=== PATIENT | female | born 1965 | race Caucasian/White ===

== ENCOUNTER 2024-06-03 16:13 | Emergency (ER) | payer MEDICAID ==
[~2024-06-03] VITALS: Ht 170.2 cm; Wt 82.9 kg
[~2024-06-03 16:13] MED LIST: BACL20TA PO; BUPR1FIL3 SL; CLON-527 PO; VILA10TA PO
[2024-06-03 16:57] LABS: BASOPHILS # (AUTO) 0.1 X10'3 (0-0.2); BASOPHILS % (AUTO) 0.6 % (0-1); EOSINOPHILS # (AUTO) 0.1 X10'3 (0-0.9); EOSINOPHILS % (AUTO) 1.2 % (0-6); HEMATOCRIT 43.3 % (35.0-45.0); HEMOGLOBIN 14.7 g/dl (12.0-16.0); LYMPHOCYTES # (AUTO) 2.7 X10'3 (1.1-4.8); LYMPHOCYTES % (AUTO) 22.5 % (21-51); MEAN CORPUSCULAR HEMOGLOBIN 33.2 PG (27.0-31.0); MEAN CORPUSCULAR HGB CONC 33.9 g/dL (33.0-36.5); MEAN CORPUSCULAR VOLUME 98.1 FL (78-98); MEAN PLATELET VOLUME 7.7 FL (7.4-10.4); MONOCYTES # (AUTO) 0.9 X10'3 (0-0.9); MONOCYTES % (AUTO) 7.8 % (2-12); NEUTROPHILS # (AUTO) 8.2 X10'3 (1.8-7.7); NEUTROPHILS % (AUTO) 67.9 % (42-75); PLATELET COUNT 484 X10'3 (140-440); RED BLOOD COUNT 4.41 X10'6 (4.20-5.60); RED CELL DISTRIBUTION WIDTH 13.1 % (11.5-14.5); WHITE BLOOD COUNT 12.1 X10'3 (4.5-11.0)
[2024-06-03 17:11] LABS: ALANINE AMINOTRANSFERASE 42 U/L (12-78); ALBUMIN 3.5 G/DL (3.4-5.0); ALBUMIN/GLOBULIN RATIO 0.9 (1.1-1.5); ALKALINE PHOSPHATASE 215 IU/L (46-116); ANION GAP 16 (8-16); ASPARTATE AMINO TRANSFERASE 19 U/L (10-37); BILIRUBIN,TOTAL 0.5 MG/DL (0.1-1.0); BLOOD UREA NITROGEN 10 MG/DL (7-18); BUN/CREATININE RATIO 11.4 (10.0-20.0); CALCIUM 8.9 MG/DL (8.5-10.1); CHLORIDE 106 MMOL/L (99-107); CREATININE 0.88 MG/DL (0.40-0.90); GLUCOSE 142 MG/DL (70-104); LIPASE 27 U/L (16-77); POTASSIUM 3.7 MMOL/L (3.5-5.1); SODIUM 143 MMOL/L (135-145); TOTAL CARBON DIOXIDE 21.2 MMOL/L (24-32); TOTAL PROTEIN 7.3 G/DL (6.4-8.2); eCRCL 65 ML/MIN; eGFR 65 ML/MIN
[2024-06-03 19:31] LABS: BILIRUBIN,URINE MODERATE (Neg); CLARITY,URINE CLEAR (Clear); COLOR,URINE YELLOW (Yellow); GLUCOSE, URINE NEGATIVE (Neg); KETONES,URINE TRACE mg/dl (Neg); LEUKOCYTE ESTERASE ,URINE NEGATIVE (Neg); OCCULT BLOOD,URINE NEGATIVE (Neg); PH,URINE 6.5 (4.8-8.0); PROTEIN,URINE 30 mg/dl (Neg); UROBILINOGEN,URINE 0.2 E.U/dL (0.2-1.0)
[2024-06-03 19:32] LABS: URINE HCG NEGATIVE (NEG)
[2024-06-03 19:39] LABS: NITRITES, URINE NEGATIVE (Neg); UA COLLECTION TYPE CLN CATCH MIDSTREAM
[2024-06-03 19:40] LABS: BACTERIA,URINE FEW /HPF (Neg); RBC,URINE 0-2 /HPF (0-2); SQUAMOUS EPITHELIAL CELL,UR MODERATE /LPF (FEW); WBC,URINE 0-4 /HPF (0-4)
[2024-06-03 23:35] VITALS: BP 120/86; PULSE 90; RESP 16; TEMP 98.6; O2SAT 98
== END 2024-06-03 23:37 | disposition home or self-care (01) ==
LOC: ER 16:14
DX: I72.8 Aneurysm of other specified arteries (principal); K59.00 Constipation, unspecified; F12.90 Cannabis use, unspecified, uncomplicated
CPT/HCPCS: 36415; 74176; 80053; 81001; 81025; 83690; 85025; 99284

== ENCOUNTER 2024-08-21 10:54 | Inpatient (IN) | payer MEDICAID ==
[~2024-08-21] VITALS: Ht 170.2 cm; Wt 80.9 kg
--- NOTE | 2024-08-21 11:25 | Physician Documentation ---
History of Present Illness ~ Chief Complaint: Confused Stated Complaint: HALLUCINATIONS Time Seen by MD: 11:07 Primary Medical Doctor: krishna LOPEZ History, review of systems, and physical examination are limited due to patient's acute clinical condition. This is a 59-year-old female with a last known well sometime yesterday, began acting strangely according to family. Family went to transport and get her evaluated for altered mental status. Similar to prior UTIs. EMS noted a strong odor of urine. At the time of my examination patient reports low back pain that been there couple of minutes and states that there is no palliating or aggravating factors for low back pain. Patient is very clearly altered and keeps talking about a box X and O box on a table, somebody needs to clean it up, go!" Denies chest pain or difficulty breathing. Denies any headache. Date: Aug 21, 2024 Time: 11:41 Patient informed the nurse that she "took a whole bunch of [place], Adderall, Soma Medication Reconciliation Allergies: Coded Allergies: No Known Allergies (Unverified , 09/30/12) Scheduled Baclofen (Baclofen), 1 TABLET PO BID, (Reported) Buprenorphine Hcl/Naloxone Hcl (Suboxone 8 Mg-2 Mg Sl Film), 1 EACH SL BID, (Reported) Vilazodone Hydrochloride (Viibryd), 20 MG PO DAILY, (Reported) Scheduled PRN Clonazepam* (Klonopin*), 0.5 MG PO DAILY PRN for anxiety, (Reported) Past Medical History Past Medical History: Chronic Back Pain Past Surgical History: noncontributory Alcohol Use: None Drug Use: marijuana Lives In: Home Review of Systems ROS Review of systems is limited as above Physical Exam Vital Signs: Temperature: 99.0, Source: Oral, Heart Rate: 92, Respiratory Rate: 22, BP: 157/89, Pulse Oximetry: 96, Weight: 77.270 Oxygen Flow Rate: 0 Physical Exam GENERAL: Awake, alert, oriented her name only, GCS 14v4, no apparent distress, non-toxic appearing, answers questions in the bizarre fashion, does not follows commands appropriately. Examined in room 11. HEENT: Atraumatic, normocephalic, pupils equal, extraocular muscles intact, sclerae anicteric, mucus membranes dry, oropharynx is clear, no stridor. NECK: supple, full active range of motion, trachea midline, no thyromegaly, no lymphadenopathy, no JVD. CARDIOVASCULAR: Mildly tachycardic and regular rate/rhythm, no murmurs/gallops/rubs, Pulses are 2+ in all extremities and symmetric. Capillary refill less than 2 seconds. PULMONARY: Nonlabored, good air movement ,no respiratory distress, speaking in full sentences, clear to auscultation bilaterally, no wheezing, no ronchi, no rales, no accessory muscle use. GASTROINTESTINAL: Soft, non-tender, non-distended, normal active bowel sounds, no organomegaly, no pulsatile masses, no CVA tenderness. NEUROLOGIC: Lucid with very clearly altered mental status. Normal facial symmetry. Moves all extremities symmetrically and with purpose. No truncal ataxia. Speech is fluid without evidence of dysarthria or aphasia, no focal deficits appreciated. MUSCULOSKELETAL: There is full range of motion of all extremities. There is no joint pain or joint swelling or joint erythema. There is no muscle pain or tenderness or swelling. EXTREMITIES: warm, well-perfused, no cyanosis, no clubbing, no edema, no acute deformities. Skin: warm, dry, no rashes or lesions, no jaundice, no petechiae orpurpura. No ecchymosis. PSYCHIATRIC: Unable to assess Progress Results/Orders Results/Orders Orders - FERCHO SALES DO Culture Blood (08/21/24 11:14) Chest,Single View (08/21/24 11:14) Ct Head (08/21/24 13:01) Straight Cath For Urine Sample (08/21/24 11:14) Non-Behavioral Restraints (08/21/24 14:16) Completed Orders - FERCHO SALES DO Electrocardiogram (08/21/24 11:14) Cbc/Diff (08/21/24 11:14) ESR (08/21/24 11:14) C-Reactive Protein (08/21/24 11:14) Urinalysis, Cult If Indicated (08/21/24 11:14) Chest,Single View (08/21/24 11:14) MG (08/21/24 11:14) Normal Saline 1000ml (0.9% Sodium Chlori (08/21/24 11:15) Ct Head (08/21/24 13:01) CMP (08/21/24 11:14) Hs Troponin I W Calculations (08/21/24 11:14) Hs Troponin I W Calculations (08/21/24 13:14) Lacticsepsis (08/21/24 11:14) Drug Screen, Urine (08/21/24 12:08) Ethanol (08/21/24 11:20) Lactic,2hr (08/21/24 13:05) Potassium Cl 20meq/15ml Oral (Potassium (08/21/24 13:10) Potassium Cl 20meq/15ml Oral (Potassium (08/21/24 13:10) Medications Received in ER Medications (Trade) Dose Ordered Sig/Frank Route PRN Reason Start Time Stop Time Status Last Admin Dose Admin (0.9% sodium chloride (NS) 1000ml IV soln) 1,000 ml ONCE ONCE IVB 08/21/24 11:15 08/21/24 11:16 DC 08/21/24 12:01 1,000 ML (POTASSIUM Cl 20mEq/15mL oral solution) 60 meq ONCE ONCE PO 08/21/24 13:10 08/21/24 13:11 DC 08/21/24 13:15 60 MEQ Vital Signs 08/21/24 08/21/24 08/21/24 11:03 11:38 13:18 Temp 99.0 Pulse 92 90 79 Resp 22 16 20 B/P (MAP) 157/89 168/103 (124) 148/79 (102) Pulse Ox 96 96 98 O2 Flow Rate 0 0 0 Laboratory Tests Test 08/21/24 11:20 08/21/24 11:29 08/21/24 11:50 08/21/24 13:18 White Blood Count 15.4 H Red Blood Count 4.18 L Hemoglobin 13.6 Hematocrit 39.9 Mean Corpuscular Volume 95.5 Mean Corpuscular Hemoglobin 32.4 H Mean Corpuscular Hemoglobin Concent 34.0 Red Cell Distribution Width 15.7 H Platelet Count 457 H Mean Platelet Volume 7.5 Neutrophils (%) (Auto) 83.7 H Lymphocytes (%) (Auto) 10.5 L Monocytes (%) (Auto) 5.1 Eosinophils (%) (Auto) 0.2 Basophils (%) (Auto) 0.5 Neutrophils # (Auto) 12.9 H Lymphocytes # (Auto) 1.6 Monocytes # (Auto) 0.8 Eosinophils # (Auto) 0.0 Basophils # (Auto) 0.1 CBC Comment Sodium Level 141 Potassium Level 3.0 *L Chloride Level 105 Carbon Dioxide Level 21.5 L Anion Gap 15 Blood Urea Nitrogen 13 Creatinine 0.95 H Estimated GFR/1.73 m2 60 BUN/Creatinine Ratio 13.7 Glucose Level 156 H Lactic Acid Level 3.4 H 2.9 H Calcium Level 9.2 Magnesium Level 1.9 Total Bilirubin 0.5 Aspartate Amino Transf (AST/SGOT) 122 H Alanine Aminotransferase (ALT/SGPT) 41 Alkaline Phosphatase 112 Troponin I High Sensitivity 17 19 C-Reactive Protein 0.79 H Total Protein 7.3 Albumin 3.6 Globulin 3.7 Albumin/Globulin Ratio 1.0 L Chemistry Comments Ethyl Alcohol Level < 10 Erythrocyte Sedimentation Rate 14 Urine Specimen Description Straight cath Urine Color Yellow Urine Clarity Clear Urine pH 6.0 Urine Specific [place] 1.015 Urine Protein Negative Urine Glucose (UA) Negative Urine Ketones Negative Urine Occult Blood Negative Urine Nitrite Negative Urine Bilirubin Negative Urine Urobilinogen 0.2 Urine Leukocyte Esterase Negative Urine Culture Indicated Not ind Volume Urine Centrifuged 10 ml Urine Comment Urine Opiates Screen Positive Urine Methadone Screen Negative Urine Fentanyl Screen Negative Urine Barbiturates Screen Negative Urine Phencyclidine Screen Negative Urine Amphetamines Screen Negative Urine Benzodiazepines Screen Positive Urine Cocaine Screen Negative Urine Cannabinoids Screen Positive Drug Screen Comment Troponin I High Sens Percent Delta 11 Troponin I Hi Sens Absolute Change 2 Microbiology Date/Time Source Procedure Growth Status 08/21/24 11:29 Blood Hand Right Blood Culture - Preliminary NEGATIVE (LESS THAN 24 HOURS) Resulted EKG/XRAY/CT/US/VASC/MRI EKG : Additional Comment EKG was obtained and interpreted by myself shows sinus rhythm of 79, normal ND interval, narrow QRS, no QT prolongation, normal axis, no STEMI. Q-wave in lead three noted. Medical Decision Making Findings Facility Status: ED Holds, RME process The plan was discussed with the patient, who demonstrates clear understanding of the plan and is in agreement with the plan unless otherwise noted in the chart. All questions have been answered, all concerns were addressed unless otherwise documented. I was available throughout their ED stay for frequent reassessment and questions. Differential Diagnoses (considered and possible or likely): [Hypoglycemia, electrolyte derangement, medication overdose, drug toxidrome, alcohol intoxication, urinary tract infection, less likely acute intracranial process] ??Differential Diagnoses (considered and unlikely, not requiring evaluation currently): [No evidence of trauma, no evidence of lateralizing signs to suspect a stroke] MDM Data Please see HPI for the following: Independent Historians and external Records Review. Historian: Very limited information for patient due to acuity of clinical condition Independent Historians: ?[EMS] Medication Management: [Reviewed medication list] Social History and determinants: [Reviewed] Please see the body of the note for the following: Any independent interpre tations of ECG, imaging studies. All vitals signs/haemodynamics, ordered tests were independently reviewed and interpreted by myself. Nursing triage complaint and vitals reviewed, additional nursing notes were reviewed as available and I agree unless otherwise noted or documented in contradiction in the chart Vital Signs: Independently reviewed Labs: Independently interpreted Imaging: Independently interpreted Old Medical Records: Independently reviewed, see [facility] for relevant summary and information Pulse Oximetry: [93%] interpreted as [normal on room air] by me [Turbine Blade Assembler: [Regular Rate, Regular rhythm, no ectopy, NSR] reviewed and interpreted by me] Additionally notably showing: [Hemodynamics reviewed. The patient is not febrile, not tachycardic, no evidence of hypotension respiratory distress. CBC shows leukocytosis, 83% neutrophils. No anemia. Normal platelets. Chem istry shows mild hypokalemia. Normal renal function. Elevated glucose. Lactic acid is elevated on improving. Transaminitis noted. UA is positive for a fluids, benzodiazepines, cannabinoid. Negative for UTI. I CT head shows no acute process chest x-ray is unremarkable.] Tests considered but not ordered include: [MRI, if needed, can be done in the inpatient basis with a strongly suspect this is metabolic encephalopathy.] Social Determinants of Health Impact: Patient was evaluated in [facility] [place] to healthcare due to below par ratio of patient to medical providers. [] Comorbid Conditions Impacting Present Evaluation and Care/Treatment: [Unknown due to limited history] Management Discussions with other Healthcare Providers: [Hospitalist regarding admission] Treatment and Disposition Medication Management (Given or considered): []. See EMR for details Consideration for Hospitalization/Escalation/Deescalation of Care: Admission for observation has been considered, and appears to be necessary for further management of metabolic encephalopathy. ?ED Course:?[No improvement whatsoever, required restraints] ?Shared decision making:?[] Code status:?FULL Please see the full Electronic Medical Record for full details of nursing documentation, medications list, other records of complete past medical history and conditions, vital signs, laboratory studies, and any radiologic study interpretations by radiologists. Portions of this note were completed using [employer] dictation software and as a result there may exist minor errors in spelling. I have reviewed elements of past family and social history and agree as included in note. Departure Disposition: ADMITTED INPATIENT Impression: Primary Impression: Acute metabolic encephalopathy Additional Impressions: Hypokalemia Formication Agitation Medication overdose Condition: Guarded Referrals: NO PRIMARY CARE PROVIDER (PCP) Critical Care Note Critical Care Note CRITICAL CARE TIME: [ 45] minutes Treatments/Evaluations: Close monitoring and treatment of unstable vital signs, cardiorespiratory, and neurologic status, while maintaining tight balance of fluid, respiratory, and cardiac interventions. This time includes discussing the case with the patient and the patients family. This time does not include all procedures stated elsewhere in this record. This time also includes reviewing old records, labs and radiological studies. This time includes examining and re- examining the patient. Additionally, this time also includes arranging care with admitting and consulting physicians. Signature Scribe Signature: No scribe Attestation: This note accurately reflects clinical decisions, work performed by myself, Fercho Sales, FERCHO WALTERS DO Aug 21, 2024 11:25
--- NOTE | 2024-08-21 11:33 | ELECTROCARDIOGRAPH REPORT ---
[facility] Test Date: 2024-08-21 Test Time: 11:32:07 Pat Name: LENA CALLES Department: EMERGENCY ROOM Room: Gender: F Optometric Coordinator: BRANDON : 1965 Requested By: MALACHI SALES Order Number: [id number] Reading MD: Measurements Intervals Tow Rate: 79 P: -6 AZ: 115 QRS: 33 QRSD: 89 T: 24 QT: 411 QTc: 472 Interpretive Statements Sinus rhythm Ventricular premature complex Borderline short [place] interval Low voltage, precordial leads Borderline T abnormalities, anterior leads Please click the below link to view image of tracing.
[2024-08-21 11:35] LABS: MEAN PLATELET VOLUME 7.5 FL (7.4-10.4); RED CELL DISTRIBUTION WIDTH 15.7 % (11.5-14.5)
--- NOTE | 2024-08-21 11:53 | RADIOLOGY REPORT ---
CHEST RADIOGRAPH Indication: [place] Technique: Single frontal view of the chest was obtained Comparison: None FINDINGS: The cardiac silhouette is unremarkable. The lungs demonstrate basilar airspace opacification. The pul monary vasculature is unremarkable. There is no pleural effusion.. There is no pneumothorax. Gastric distention. IMPRESSION: As above
[2024-08-21 11:55] LABS: CREATININE 0.95 MG/DL (0.40-0.90); TOTAL CARBON DIOXIDE 21.5 MMOL/L (24-32); eCRCL 60 ML/MIN; eGFR 60 ML/MIN
[2024-08-21] MEDS: normal saline 1000ML IV soln IVB ONE (12:01)
[2024-08-21 12:10] LABS: LEUKOCYTE ESTERASE ,URINE NEGATIVE (Neg); NITRITES, URINE NEGATIVE (Neg); OCCULT BLOOD,URINE NEGATIVE (Neg)
[2024-08-21 12:12] LABS: UA COLLECTION TYPE STRAIGHT CATH
[2024-08-21] MEDS ORDERED: POTASSIUM CHLORIDE 20 MEQ/15 ML oral solution PO SCH (13:10)
[2024-08-21] MEDS: POTASSIUM CHLORIDE 20 MEQ/15 ML oral solution PO ONE (13:15)
--- NOTE | 2024-08-21 13:16 | RADIOLOGY REPORT ---
EXAM: CT CT HEAD HISTORY: aloc COMPARISON: None TECHNIQUE: Noncontrast axial CT images of the head were performed. Sagittal and coronal reformatted i mages were obtained. This CT exam was performed using 1 or more of the following dose reduction techn iques: Automated exposure control, adjustment of the mA and/or kv according to patient size, or the u se of iterative reconstruction techniques. Radiation Dose: CTDI volume is 62.79 mGy. Dose-length product is 1055.44 mGy*cm FINDINGS: No intracranial hemorrhage, mass, midline shift, hydrocephalus, or evidence of acute large vessel inf arct. There is minimal decreased attenuation in the periventricular white matter. The partially-visua lized paranasal sinuses are clear. There are advanced degenerative changes of the bilateral temporoma ndibular joints. The bilateral mastoid air cells and middle ear spaces are clear. No cranial fracture or scalp edema. IMPRESSION: No acute intracranial process.
[2024-08-21 13:52] LABS: ETHANOL < 10 MG/DL (<10)
[2024-08-21 14:21] LABS: URINE AMPHETAMINE SCREEN NEGATIVE (Neg); URINE BARBITUATE SCREEN NEGATIVE (Neg); URINE BENZODIAZEPINES SCREEN POSITIVE (Neg); URINE CANNABINOID SCREEN POSITIVE (Neg); URINE COCAINE SCREEN NEGATIVE (Neg); URINE METHADONE SCREEN NEGATIVE (Neg); URINE OPIATE SCREEN POSITIVE (Neg); URINE PHENCYCLIDINE SCREEN NEGATIVE (Neg)
[2024-08-21] MEDS: haloperidol lactate 5mg/ml inj IM ONE (14:46)
[2024-08-21] MEDS ORDERED: potassium Cl 20 mEq SR tablet PO PRN ×3 (14:55→15:00)
[2024-08-21] MEDS ORDERED: ondansetron/PF 4mg/2ml inj IV PRN ×3 (14:55→15:00)
[2024-08-21] MEDS ORDERED: ringers solution, lacted 1,000 ML IV ONE (14:55)
[2024-08-21] MEDS ORDERED: mag hydrox/Alum hydrox/simeth 30ml oral suspension PO PRN ×2 (14:55→15:00)
[2024-08-21] MEDS ORDERED: potassium Cl 40MEQ/1/2NS 520ml 520 ML IV PRN ×2 (14:55→15:00)
[2024-08-21] MEDS ORDERED: magnesium sulf-water 2g/50mL 50 ML IV PRN ×2 (14:55→15:00)
[2024-08-21] MEDS ORDERED: magnesium hydroxide 30ml (MOM) UD suspension PO PRN ×2 (14:55→15:00)
[2024-08-21] MEDS ORDERED: magnesium sulf-water 4G/100mL 100 ML IV PRN ×2 (14:55→15:00)
[2024-08-21] MEDS ORDERED: magnesium Cl slow-release 64mg tablet PO PRN (14:55)
[2024-08-21] MEDS ORDERED: metoclopramide 5 mg/ml inj IV PRN (15:00)
--- NOTE | 2024-08-21 15:27 | HISTORY AND PHYSICAL ---
History & Physical Providers to CC ~ History of Present Illness Reason for Admit\\Complaint: Metabolic encephalopathy, sepsis History of Present Illness Rosa Alejandro is a 59-year-old female with past medical history of depression, medication overdose, chronic back pain who was brought to the ED via EMS due to family's concern over strange behavior and altered mental status x 2 days. On initial assessment, patient is awake, alert and oriented to person, place, and time but also displays signs of hallucinations. Patient is a poor historian hence most history was taken from ED note and previous medical records. In ED, patient stated "I took a whole bunch of [place], Adderall, Soma". Of note, patient has a medical history of intentional polydrug overdose which included opiates, benzodiazepines, cannabinoids, acetaminophen. Patient denies prior VA/CAD, CVA, cardiac arrhythmia, DVT/PE, or GIB. Patient denies intentional overdose, SI, HI, chest pain, palpitations, shortness of breath, abdominal pain, n/v/d, dysuria, fever, chills, recent illness. Poison Control was contacted in ED. Patient is to be admitted for further workups and treatment. Allergies: Coded Allergies: No Known Allergies (Unverified , 09/30/12) Home Medications Home Medications Active Reported Klonopin* (Clonazepam) 1 Mg Tablet 0.5 Mg PO DAILY PRN Viibryd (Vilazodone Hydrochloride) 10 Mg Tablet 20 Mg PO DAILY Suboxone 8 Mg-2 Mg Sl Film (Buprenorphine Hcl/Naloxone Hcl) 1 Each Film 1 Each SL BID Baclofen 20 Mg Tablet 1 Tablet PO BID Past Medical History Past Medical History Suicide ideation Depression Chronic back pain Polydrug overdose Past Surgical History Surgical History Comment Noncontributory Past Social History Social History Comment Alcohol: Denies Tobacco: Denies Illicit drug use: Marijuana Living situation: lives at home with family ROS ROS Other than positives in HPI, all 14 review of systems are negative Exam Vitals: Vital Signs Date Time Temp Pulse Resp B/P (MAP) Pulse Ox O2 Delivery O2 Flow Rate FiO2 08/21/24 14:58 78 16 164/102 (122) 98 0 08/21/24 11:03 99.0 General: Confused, awake, NAD HEENT: Normocephalic, PERRLA Neck: Supple, trachea midline, no JVD Chest: Clear to auscultation bilaterally Cardiovascular: RRR, S1&S2 Abdomen: Soft and nontender Extremities: No cyanosis/clubbing/or edema Central Nervous System: No focal deficits Musculoskeletal: No paraspinal muscle tenderness, no muscle spasm Skin: Warm and intact Diagnostic Data Last Recorded Lab Results: 08/21/24 1120 08/21/24 1120 Additional Plan Assessment Community-acquired pneumonia, covering for Gram-positive and Gram-negative Sepsis 2/2 PNA Hypokalemia XIOMARA vs CKD Polydrug overdose Hx suicidal ideation by OD Opiod withdrawal Acute metabolic encephalopathy 2/2 above HTN -K 3.0, CXR shows pneumonia, UDS positive opiates, BDZs, cannabinoids, lactic acid 3.4; poison control called in ED -UA negative, acetaminophen negative, aspirin negative, ethyl alcohol negative, EKG sinus at 79bpm, no prolonged RICK, no QT prolongation, no STEMI Chronic back pain MDD Hx medication OD Plan -bolus fluids followed by continuous, abx, opioid withdrawal protocol, benzo withdrawal seizure precaution, K/Mg replacement per protocol, prn hydralazine -follow urine K, strict I&Os, serial BMP, repeat lactic acid, pending med rec DVT/VTE prophylaxis: heparin Code status: Full code by default until further assessment Date of Service: Aug 21, 2024 Billing Provider: HANY RDZ Common Visit Codes: [id number] INP/OBS CARE (HIGH) HANY RDZ Aug 21, 2024 15:27
[2024-08-21] MEDS ORDERED: hydrALAZINE 20mg/ml inj. IV PRN (15:40)
[2024-08-21] MEDS: CefTRIAXone/D5W-Rocephin 1gm 50 ML IV ONE (16:29)
[2024-08-21] MEDS: ringers solution, lacted 1,000 ML IV ONE ×2 (16:34→16:38)
[2024-08-21 16:50] LABS: CREATININE 0.90 MG/DL (0.40-0.90); TOTAL CARBON DIOXIDE 21.2 MMOL/L (24-32); eCRCL 64 ML/MIN; eGFR 64 ML/MIN
[2024-08-21] MEDS: azithromycin/NS 500mg/250ml 250 ML IV ONE (17:44)
[2024-08-21] MEDS ORDERED: UNABLE TO OBTAIN (18:17)
[2024-08-21] MEDS ORDERED: CLON1TAB12 PO (18:45)
[2024-08-21] MEDS ORDERED: OMEP20CA16 PO (18:45)
[2024-08-21] MEDS ORDERED: DICY20TA17 PO (18:45)
[2024-08-21] MEDS ORDERED: QUET200T31 PO (18:45)
[2024-08-21] MEDS ORDERED: HYDR-3973 PO (18:45)
[2024-08-21 19:00] VITALS: BP 137/59; PULSE 77; RESP 16; TEMP 98.3; O2SAT 96
[2024-08-21] MEDS: K and/or MAG REPLACEMENT MC SCH (20:00)
[2024-08-21] MEDS ORDERED: K and/or MAG REPLACEMENT MC SCH (20:00)
[2024-08-21] MEDS: ringers solution, lacted 1,000 ML IV SCH (20:00)
[2024-08-21] MEDS ORDERED: docusate sod 100mg capsule PO SCH (20:00)
[2024-08-21 20:23] LABS: CREATININE 0.68 MG/DL (0.40-0.90); TOTAL CARBON DIOXIDE 24.5 MMOL/L (24-32); eCRCL 84 ML/MIN; eGFR 88 ML/MIN
[2024-08-21] MEDS: docusate sod 100mg capsule PO SCH (21:13)
[2024-08-21] MEDS: heparin, porcine 5000 units/ml vial SQ SCH (21:15)
[2024-08-21] MEDS: potassium Cl 20 mEq SR tablet PO PRN (21:47)
[2024-08-21 22:00] VITALS: BP 158/95; PULSE 78; RESP 16; TEMP 97.9; O2SAT 95
[2024-08-22] VITALS (10 sets, daily range): BP systolic 107–145; BP diastolic 68–90; PULSE 67–81; RESP 14–17; TEMP 97.9–98.6; O2SAT 94–97
[2024-08-22] MEDS: HYDROcodone/acetaminophen 10/325mg tab PO ONE (03:13)
[2024-08-22 05:03] LABS: MEAN PLATELET VOLUME 7.6 FL (7.4-10.4); RED CELL DISTRIBUTION WIDTH 15.4 % (11.5-14.5)
[2024-08-22 05:23] LABS: CREATININE 0.80 MG/DL (0.40-0.90); TOTAL CARBON DIOXIDE 24.7 MMOL/L (24-32); eCRCL 72 ML/MIN; eGFR 73 ML/MIN
[2024-08-22 05:27] LABS: CREATININE 0.80 MG/DL (0.40-0.90); TOTAL CARBON DIOXIDE 24.8 MMOL/L (24-32); eCRCL 72 ML/MIN; eGFR 73 ML/MIN
[2024-08-22] MEDS: azithromycin/NS 500mg/250ml 250 ML IV SCH (08:15)
[2024-08-22] MEDS: CefTRIAXone/D5W-Rocephin 1gm 50 ML IV SCH (09:09)
--- NOTE | 2024-08-22 10:05 | PROGRESS NOTE ---
Daily Progress Note Providers to CC ~ Antibiotic Timeout Antibiotic Ordered?: Yes Subjective No acute events overnight. Patient examined at bedside. No new complaints. Patient denies chest pain, sob, palpitations, abdominal pain, n/v/d. On 1798 with sitter for OD on narcotics. Vss, labs unremarkable. Patient ambulates with minimal assistance to the bathroom. Patient medically cleared for [facility] eval placed 5150. Evaluated by [facility]. Objective Vital Signs Date Time Temp Pulse Resp B/P (MAP) Pulse Ox O2 Delivery O2 Flow Rate FiO2 08/22/24 08:18 81 08/22/24 08:15 131/76 (94) 08/22/24 08:00 Room Air 0.0 08/22/24 06:00 98.6 16 96 Result Diagram: 08/22/2444908/22/24449 Physical Exam General: A&Ox3, NAD HEENT: Normocephalic, PERRLA Neck: Supple, trachea midline, no JVD Chest: Clear to auscultation bilaterally Cardiovascular: RRR, S1&S2 GI: Soft and nontender Extremities: No cyanosis/clubbing/or edema AGRICULTURAL SYSTEMS SPECIALIST: CN II-XII intact, no focal deficits Musculoskeletal: No paraspinal muscle tenderness, no muscle spasm Skin: Warm and intact Problem\Assessment\Plan Assessment Community-acquired pneumonia, covering for Gram-positive and Gram-negative Sepsis 2/2 PNA Hypokalemia XIOMARA vs CKD Polydrug overdose Hx suicidal ideation by OD Opiod withdrawal Acute metabolic encephalopathy 2/2 above HTN Chronic pain syndrome -K 3.0, CXR shows pneumonia, UDS positive opiates, BDZs, cannabinoids, lactic acid 3.4; poison control called in ED -UA negative, acetaminophen negative, aspirin negative, ethyl alcohol negative, EKG sinus at 79bpm, no prolonged RICK, no QT prolongation, no STEMI -08/22: on 1798 with sitter for OD on narcotics, vss, labs unremarkable, patient walks with minimal assistance to the bathroom. Patient medically cleared for [facility] eval placed 5150. Evaluated by [facility]. Chronic back pain MDD Hx medication OD Plan -bolus fluids followed by continuous, abx, opioid withdrawal protocol, benzo withdrawal seizure precaution, K/Mg replacement per protocol, prn hydralazine -follow urine K, strict I&Os, serial BMP, repeat lactic acid, pending med rec DVT/VTE prophylaxis: heparin Code status: Full code by default until further assessment Date of Service: Aug 22, 2024 Billing Provider: HANY RDZ Common Visit Codes: [id number] INP/OBS CARE(HIGH) HANY RDZ Aug 22, 2024 10:05
[2024-08-23 04:30] VITALS: BP 137/84; PULSE 71; RESP 16; TEMP 99.4; O2SAT 96
[2024-08-23 05:13] LABS: MEAN PLATELET VOLUME 7.8 FL (7.4-10.4); RED CELL DISTRIBUTION WIDTH 15.8 % (11.5-14.5)
[2024-08-23 05:32] LABS: CREATININE 0.77 MG/DL (0.40-0.90); TOTAL CARBON DIOXIDE 25.2 MMOL/L (24-32); eCRCL 75 ML/MIN; eGFR 76 ML/MIN
[2024-08-23 10:00] VITALS: BP 111/67; PULSE 67; RESP 16; TEMP 98.1; O2SAT 95
[2024-08-23 12:54] VITALS: BP 125/78; PULSE 63
--- NOTE | 2024-08-23 15:05 | DISCHARGE SUMMARY ---
Discharge Summary Providers to CC ~ Discharge Summary Admission Diagnosis: metabolic encephalopathy, sepsis, hypokalemia, pneumonia Hospital Course DATE OF ADMISSION: 08/21/24 DATE OF DISCHARGE: 08/23/24 Discharge Diagnosis\\Comment: Community-acquired pneumonia, covering for Gram-positive and Gram-negative Sepsis 2/2 PNA Hypokalemia Polydrug overdose Hx suicidal ideation by OD Opiod withdrawal Acute metabolic encephalopathy 2/2 above HTN Chronic pain syndrome Chronic back pain MDD Hx medication OD XIOMARA- excluded Operations\\Procedures: None Consultants: None Complications: None Condition on DC: Stable Discharge Summary: History of Present Illness Rosa Alejandro is a 59-year-old female with past medical history of depression, medication overdose, chronic back pain who was brought to the ED via EMS due to family's concern over strange behavior and altered mental status x 2 days. On initial assessment, patient is awake, alert and oriented to person, place, and time but also displays signs of hallucinations. Patient is a poor historian hence most history was taken from ED note and previous medical records. In ED, patient stated "I took a whole bunch of [place], Adderall, Soma". Of note, patient has a medical history of intentional polydrug overdose which included opiates, benzodiazepines, cannabinoids, acetaminophen. Patient denies prior PA/CAD, CVA, cardiac arrhythmia, DVT/PE, or GIB. Patient denies intentional overdose, SI, HI, chest pain, palpitations, shortness of breath, abdominal pain, n/v/d, dysuria, fever, chills, recent illness. Poison Control was contacted in ED. Patient is to be admitted for further workups and treatment. Hospital Course Diagnostic findings were notable for hypokalemia, elevated lactic acid, hypokalemia, chest x-ray revealing pneumonia, findings of sepsis, UDS positive for opiates, benzodiazepines, cannabinoids. Pertinent negative findings were urinalysis negative for urinary tract infection, negative acetaminophen, negative aspirin, negative troponin, EKG sinus at a rate of 79 bpm, no prolonged RICK, no QT prolongation, no STEMI. With history of suicidal attempt by overdose, patient was admitted on 1798. Patient was treated with intravenous fluids, empirical antibiotics, electrolyte replacement per protocol. Patient did not experience further complications throughout the entire hospital stay and remained clinically and hemodynamically stable. Patient was seen and examined on the day of discharge. On day of discharge, vss and labs unremarkable. Telemetry remained sinus in 70s. All labs, diagnostic workups, discharge plan discussed with patient in details during visit before discharge. All questions and concerns answered to the best of my professional knowledge. Patient was evaluated by [facility] and was placed on 5150 hold. Patient is to be discharged to [facility]. Physical Exam General: A&Ox 3, NAD HEENT: Normocephalic, PERRLA Neck: Supple, trachea midline, no JVD Chest: Clear to auscultation bilaterally Cardiovascular: RRR, S1&S2 GI: Soft and nontender Extremities: No cyanosis/clubbing/or edema STREAM CONTROL OFFICER: CN II-XII intact, no focal deficits Musculoskeletal: No paraspinal muscle tenderness, no muscle spasm Skin: Warm and intact *Problems/Diagnosis: (1) Overdose Status: Acute (2) Suicidal ideation Status: Acute (3) Acute metabolic encephalopathy Status: Acute Total Time Spent on D/C: > 30 Minutes Date of Service: Aug 23, 2024 Billing Provider: HANY RDZ Common Visit Codes: [id number] DISCH DAY >30min HANY RDZ Aug 23, 2024 15:02
[2024-08-23 17:16] VITALS: BP 139/84; RESP 61
[2024-08-23 20:00] VITALS: RESP 18; O2SAT 96
== END 2024-08-23 21:10 | DRG 817 ==
LOC: ER 10:55 → ED HOLD 15:13 → ORTHO 4S 18:50
PROVIDERS: ADMIT Nurse Practitioner Family; ATTEND Nurse Practitioner Family
DX: T40.712A Poisoning by cannabis, intentional self-harm, initial encounter (principal); A41.9 Sepsis, unspecified organism; G93.41 Metabolic encephalopathy; J18.9 Pneumonia, unspecified organism; G89.4 Chronic pain syndrome; R45.851 Suicidal ideations; F32.9 Major depressive disorder, single episode, unspecified; F12.90 Cannabis use, unspecified, uncomplicated; I10 Essential (primary) hypertension; E87.6 Hypokalemia; T40.2X2A Poisoning by other opioids, intentional self-harm, initial encounter; T42.4X2A Poisoning by benzodiazepines, intentional self-harm, initial encounter; Y92.89 Other specified places as the place of occurrence of the external cause; Z91.51 Personal history of suicidal behavior
CPT/HCPCS: 36415; 70450; 71045; 80048; 80053; 80305; 80320; 80329; 81003; 83605; 83735; 84133; 84145; 84484; 85025; 85651; 86140; 87040; 87081; 93005; 96360; 96372; 97110; 97116; 97161; 97530; 99291; A6213; C1758; G0378; J0456; J0696; J1630; J1644; J2060; J7030; J7120